=== PATIENT | female | born 1970 | race African-American/Black ===

== ENCOUNTER 2018-02-27 08:16 | Day surgery (SDC) | payer OTHER ==
[2018-02-26 09:14] VITALS: BMI 38.6
[2018-02-27] MEDS ORDERED: MIDAZOLAM HCL 2 MG/2 ML SINGLE DOSE VIAL ONE ×2 (10:32)
[2018-02-27] MEDS ORDERED: ROPIVACAINE HCL 0.5% 30ML VIAL ONE (10:32)
[2018-02-27] MEDS ORDERED: DEXAMETHASONE SOD PHOSPHATE/PF 10 MG/ML SDV ONE (10:32)
[2018-02-27] MEDS ORDERED: ROCURONIUM BROMIDE 50 MG/5 ML VIAL ONE (12:42)
--- NOTE | 2018-02-27 13:03 | HP ---
Satellite [facility] - Chief Complaint Chief Complaint: right shoulder pain - Past Medical History Allergies/Adverse Reactions: Allergies Allergy/AdvReac Type Severity Reaction Status Date / Time No Known Allergies Allergy Verified 02/14/16 01:09 ...LMP: 02/22/18 - Current Medications Current Medications: Home Medications Medication Instructions Recorded Hydrocodone/Acetaminophen [[place] 1 each PO Q6H PRN #40 tablet MDD 4 02/27/18 5-325 Tablet] Satellite Physical Exam - Physical Examination Vital Signs: Vital Signs Period Temp Pulse Resp BP Sys/Moreno Pulse Ox Last 24 Hr 98.1 F 86 18 144/76 99 General Appearance: Well Nourished, Well Developed, Alert & Oriented x3 ENT: Clear Lung: Normal air movement Heart: Regular rate & rhythm Extremities: Other (right shoulder- + ttp, decr rom, + neer, + galindo, nvi) Neurological: Intact, Alert, Oriented Satellite Impression/Plan - Impression/Plan Impression: right shoulder impingement Operative Procedure: right shoulder arthroscopy with SAD Date to be Performed: 02/27/18
[2018-02-27] MEDS ORDERED: ceFAZolin SODIUM 1 GM VIAL IVPB ONE (13:25)
[2018-02-27] MEDS ORDERED: ONDANSETRON 4 MG/2 ML VIAL IVPUSH PRN (13:39)
[2018-02-27] MEDS ORDERED: oxyCODONE HCL 5 MG TABLET PO PRN ×2 (13:39)
[2018-02-27] MEDS ORDERED: PROPOFOL 20 ML ONE (13:40)
[2018-02-27] MEDS ORDERED: KETOROLAC TROMETHAMINE 30 MG/1 ML VIAL ONE (13:42)
[2018-02-27] MEDS ORDERED: GLYCOPYRROLATE 0.2 MG/1 ML VIAL ONE (13:44)
[2018-02-27] MEDS ORDERED: NEOSTIGMINE METHYLSULFATE 0.5 MG/ML - 10 ML MDV ONE (13:44)
[2018-02-27] MEDS ORDERED: LACTATED RINGERS SOLUTION 1,000 ML IV SCH (13:45)
--- NOTE | 2018-02-27 14:16 | OP ---
Operative Note - Note: Operative Date: 02/27/18 Pre-Operative Diagnosis: right shoulder impingement syndrome Operation: right shoulder arthroscopy, subacromial decompression Post-Operative Diagnosis: Same as Pre-op Surgeon: Samuel Bauman Anesthesiologist/OPERATIONS MANAGER: Travis Bar Anesthesia: General, Local Specimens Removed: shavings Estimated Blood Loss (mls): 10 Drains, Volume Out (mls): 0 Blood Volume Replaced (mls): 0 Fluid Volume Replaced (mls): 1,000 Operative Report Dictated: Yes
--- NOTE | 2018-02-27 15:58 | SPEC ---
DATE OF OPERATION: 02/27/2018 PREOPERATIVE DIAGNOSIS: Right shoulder impingement syndrome. POSTOPERATIVE DIAGNOSIS: Right shoulder impingement syndrome. PROCEDURES: 1. Right shoulder arthroscopy. 2. Subacromial decompression. SURGEON: Kathya Flores M.D. ASSISTANTS: None. ANESTHESIOLOGIST: Travis Bar CRNA ANESTHESIA: Right interscalene block and general endotracheal anesthesia. DRAINS: None. COMPLICATIONS: None. BLOOD LOSS: Minimal. BLOOD GIVEN: None. FLUID REPLACEMENT: Plasmalyte 1000 mL. SPECIMEN: Arthroscopic shavings. INDICATIONS: This patient is a 47-year-old female with a preoperative diagnosis of right shoulder impingement syndrome. After understanding the potential risks, complications, alternatives, and benefits of surgery versus nonsurgical treatment, the patient elected to undergo this procedure. PROCEDURE: Patient brought to the operating room. Peripheral IV placed. IV sedation given. Two grams of IV Ancef was given. General endotracheal anesthesia was induced. She was placed in the beach-chair position with ample padding throughout the right upper extremity. She was prepped and draped in sterile fashion. Now the bony landmarks were marked out with a marking pen. A posterior portal was established. A diagnostic glenohumeral arthroscopy was performed. Overall, things in the joint looked good. The undersurface of the rotator cuff looked perfect. The biceps tendon was good. There was a tear of the inferior labrum from approximately the 8 o'clock to the 4 o'clock position. It was also quite frayed. There was no chance for repair, but the anterior labrum from 12 to 4 and the posterior labrum all looked fine. The glenoid looked good. There was a small area of grade 1 to grade 2 chondromalacial changes around the anterior-inferior quadrant. The humeral head looked good. The rest of the joint looked good. Next, our attention turned to the subacromial space. A lateral portal was established with a spinal needle under direct visualization. A Green cannula was introduced into the subacromial space and the space had a tremendous amount of subacromial bursitis. An extensive bursectomy/extensive debridement was done with the ArthroCare wand. This revealed a very large subacromial spur. There was no subclavicular spur. The bony subacromial spur was taken down first with the 5.5-mm oval john paul in forward and then fine tuned in reverse, and then the shaver was introduced to fine tune it further and to remove all bony debris. Overall, it looked quite good. Photographs taken before and after. It was a large spur that was removed. Next, I put the arm through a full range of motion. There were no points of impingement and the entire rotator cuff was visualized from the bursal side and seen to be intact. All excess saline was removed. The arthroscopy portals were closed with 3-0 nylon sutures, washed and dried, covered with Aquacel dressing. Total operative time was about 35 minutes. The patient was taken down out of the beach-chair position, extubated. There were no complications during the case. She was brought to the ambulatory recovery room in stable condition. KATHYA FLORES M.D. [id number]
[2018-02-27 16:32] VITALS: TEMP 98
[2018-02-27 17:09] VITALS: BP 132/74; PULSE 85
--- NOTE | 2018-03-01 18:48 | PATH ---
Surgical Pathology Report Patient Name: HENRY HAMMOND Med. Rec. #: [id number] /Age/Gender: 1970 (Age: 47) / F Account: [id number] Location: [facility] Taken: 02/27/2018 Received: 02/28/2018 Reported: 03/01/2018 Physicians: Samuel Bauman M.D. Specimen(s) Received RIGHT SHOULDER SHAVINGS Clinical History Right shoulder impingement syndrome Final Diagnosis RIGHT SHOULDER SHAVINGS: FRAGMENTS OF SYNOVIAL AND FIBROCARTILAGINOUS TISSUE WITH DEGENERATIVE CHANGE. FRAGMENTS OF SKELETAL MUSCLE WITH NO DIAGNOSTIC ABNORMALITIES. Electronically Signed Brittany Waddell M.D. Gross Description Received in formalin labeled "right shoulder shavings", is a 3.1 x 2.0 x 0.7 cm aggregate of ibanez-yellow soft tissue fragments. The formalin is filtered and assistance representative tissue submitted in one cassette. SHELBY/02/28/2018 ayana/02/28/2018
== END 2018-02-27 17:10 | disposition home or self-care (01) ==
LOC: JASU-SURG 08:16
PROVIDERS: ATTEND Orthopaedic Surgery
PROC: 0RBJ4ZZ Excision of Right Shoulder Joint, Percutaneous Endoscopic Approach (ICD-10-PCS; principal; 2018-02-27 10:30)
DX: M75.41 Impingement syndrome of right shoulder (principal)
CPT/HCPCS: 84703; 88304-TC; 94760

== ENCOUNTER 2023-04-22 11:09 | Emergency (ER) | payer OTHER ==
[2023-04-22 11:14] VITALS: BMI 36.9
[2023-04-22 11:54] LABS: PH,URINE 5.5 (5.0-8.0); URINE APPEARANCE CLEAR; URINE BILIRUBIN NEGATIVE (NEGATIVE); URINE COLOR YELLOW; URINE GLUCOSE (UA) NEGATIVE (NEGATIVE); URINE KETONE TRACE (NEGATIVE); URINE LEUK ESTERASE NEGATIVE (NEGATIVE); URINE NITRITE NEGATIVE (NEGATIVE); URINE PROTEIN NEGATIVE (NEGATIVE); URINE UROBILINOGEN 0.2 mg/dL (0.2-1.0)
[2023-04-22 11:56] LABS: HCG,QUALITATIVE URINE Negative
[2023-04-22] MEDS ORDERED: morphine CARPU-JECT 4 MG/1 ML DISP.SYRIN IVPUSH ONE (12:08)
[2023-04-22] MEDS ORDERED: ONDANSETRON 4 MG/2 ML VIAL IVPUSH ONE (12:09)
[2023-04-22] MEDS ORDERED: ONDANSETRON 4 MG/2 ML VIAL ONE (12:17)
[2023-04-22] MEDS ORDERED: morphine SULFATE 4 MG/ML VIAL ONE (12:18)
[2023-04-22 12:47] LABS: BASO % 0.4 % (0-2.0); EOS % 1.6 % (0-4.5); HEMATOCRIT 39.9 % (32.4-45.2); HEMOGLOBIN 13.4 GM/dL (10.7-15.3); LYMPH % 12.6 % (8-40); MCH 29.7 pg (25.7-33.7); MCHC 33.5 g/dl (32.0-36.0); MEAN CELL VOLUME 88.6 fl (80-96); MEAN PLT VOLUME 8.5 fl (7.5-11.1); MONO % 6.8 % (3.8-10.2); NEUT % 78.6 % (42.8-82.8); PLATELET COUNT 266 10^3/uL (134-434); RBC 4.51 M/mm3 (3.60-5.2); RDW 15.5 % (11.6-15.6); WHITE BLOOD COUNT 11.3 K/mm3 (4.0-10.0)
[2023-04-22 12:58] LABS: INR 1.03 (0.83-1.09); PROTHROMBIN TIME (PATIENT) 11.9 SEC (9.7-13.0)
[2023-04-22 13:11] LABS: ALBUMIN 3.5 g/dl (3.4-5.0); BLOOD UREA NITROGEN 9.8 mg/dL (7-18)
[2023-04-22 13:14] LABS: CREATININE 0.9 mg/dL (0.55-1.3)
[2023-04-22 13:15] LABS: BILIRUBIN,TOTAL 0.6 mg/dL (0.2-1); TOT PROT 7.4 g/dl (6.4-8.2)
[2023-04-22] MEDS ORDERED: KETOROLAC TROMETHAMINE 15 MG/ML VIAL IVPUSH ONE (14:46)
[2023-04-22] MEDS ORDERED: KETOROLAC TROMETHAMINE 15 MG/ML VIAL ONE (15:10)
[2023-04-22 16:45] VITALS: BP 138/74; PULSE 88; RESP 16; TEMP 98.6
== END 2023-04-22 16:45 | disposition home or self-care (01) ==
LOC: JER 11:09
PROC: 3E0333Z Introduction of Anti-inflammatory into Peripheral Vein, Percutaneous Approach (ICD-10-PCS; principal; 2023-04-22)
PROC: 3E033GC Introduction of Other Therapeutic Substance into Peripheral Vein, Percutaneous Approach (ICD-10-PCS; 2023-04-22)
PROC: 3E033GC Introduction of Other Therapeutic Substance into Peripheral Vein, Percutaneous Approach (ICD-10-PCS; 2023-04-22)
DX: R10.9 Unspecified abdominal pain (principal); D25.9 Leiomyoma of uterus, unspecified
CPT/HCPCS: 36415; 74177-TC; 76830-TC; 80053; 81003; 83690; 84703; 85025; 85610; 87086; 99285-25; Q9967

== ENCOUNTER 2023-06-30 09:50 | Emergency (ER) | payer OTHER ==
[2023-06-30 09:57] VITALS: TEMP 98.3; BMI 36.8
[2023-06-30 10:45] LABS: BASO % 0.7 % (0-2.0); EOS % 2.9 % (0-4.5); HEMATOCRIT 39.6 % (32.4-45.2); HEMOGLOBIN 13.3 GM/dL (10.7-15.3); LYMPH % 32.9 % (8-40); MCH 30.1 pg (25.7-33.7); MCHC 33.6 g/dl (32.0-36.0); MEAN CELL VOLUME 89.7 fl (80-96); MEAN PLT VOLUME 8.3 fl (7.5-11.1); MONO % 7.9 % (3.8-10.2); NEUT % 55.6 % (42.8-82.8); PLATELET COUNT 312 10^3/uL (134-434); RBC 4.41 M/mm3 (3.60-5.2); RDW 15.6 % (11.6-15.6); WHITE BLOOD COUNT 4.5 K/mm3 (4.0-10.0)
[2023-06-30 10:46] LABS: INR 0.97 (0.83-1.09); PROTHROMBIN TIME (PATIENT) 11.2 SEC (9.7-13.0)
[2023-06-30 10:58] LABS: POTASSIUM 4.5 mmol/L (3.5-5.1)
[2023-06-30 11:02] LABS: CALCIUM 9.1 mg/dL (8.5-10.1)
[2023-06-30 11:03] LABS: ALBUMIN 3.3 g/dl (3.4-5.0); BLOOD UREA NITROGEN 11.4 mg/dL (7-18)
[2023-06-30 11:06] LABS: CREATININE 1.1 mg/dL (0.55-1.3)
[2023-06-30 11:07] LABS: BILIRUBIN,TOTAL 0.2 mg/dL (0.2-1); TOT PROT 7.6 g/dl (6.4-8.2)
[2023-06-30 14:05] VITALS: BP 133/67; PULSE 78; RESP 20
== END 2023-06-30 15:53 | disposition home or self-care (01) ==
LOC: JERFT 09:50
DX: D25.9 Leiomyoma of uterus, unspecified (principal); N93.9 Abnormal uterine and vaginal bleeding, unspecified; R10.2 Pelvic and perineal pain
CPT/HCPCS: 36415; 76830-TC; 80053; 84703; 85025; 85610; 86850; 86900; 86901; 99284-25